=== PATIENT | male | born 1990 | race Caucasian/White ===

== ENCOUNTER 2017-03-10 16:45 | Emergency (ER) | payer SELFPAY ==
[~2017-03-10] VITALS: Ht 162.6 cm; Wt 56.7 kg
--- NOTE | 2017-03-10 17:07 | Emergency Room Report ---
History of Present Illness General Chief Complaint: General Complaint Source: Patient, EMS Present Illness HPI The patient is a 26-year-old male with a history of schizophrenia drug abuse presenting for auditory hallucinations. The patient is unsure of what is being said to him and denies suicidal ideation, self-harm, or homicidal ideation. The patient states that he has taken drugs over the past day including methamphetamines, marijuana, and acid. He denies drinking alcohol. He states he has not seen a psychiatrist within the past 6 months. He does state used to take separates which helped with the symptoms. He denies any other symptoms including N, V, F, chills, CP, SOB Allergies: Coded Allergies: No Known Allergies (Unverified , 03/10/17) Patient History Past Medical History: see triage record, psych hx Pertinent Family History: none Reviewed Nursing Documentation: PMH: Agreed, PSxH: Agreed Nursing Documentation-PMH Past Medical History: No Stated History Review of Systems All Other Systems: negative except mentioned in HPI Physical Exam Vital Signs Date Time Temp Pulse Resp B/P Pulse Ox O2 Delivery O2 Flow Rate FiO2 03/10/17 16:38 98.6 124 18 134/86 100 Room Air Sp02 EP Interpretation: reviewed, normal General Appearance: no apparent distress, alert, GCS 15, non-toxic Head: normocephalic, atraumatic Eyes: bilateral eye PERRL, bilateral eye normal inspection ENT: hearing grossly normal, normal pharynx, no angioedema, normal voice Neck: full range of motion, supple/symm/no masses Respiratory: chest non-tender, lungs clear, normal breath sounds, speaking full sentences Cardiovascular #1: regular rate, rhythm, no edema Musculoskeletal: back normal, gait/station normal, normal range of motion, non- tender Neurologic: alert, oriented x3, responsive, motor strength/tone normal, sensory intact, normal gait Psychiatric: memory normal, no suicidal/homicidal ideation, anxious Skin: normal color, no rash, warm/dry, well hydrated Lymphatic: no adenopathy Medical Decision Making PA Attestation Dr. Gar is my supervising physician. Patient management was discussed with my supervising physician Diagnostic Impression: Primary Impression: Schizophrenia Qualified Codes: F20.9 - Schizophrenia, unspecified ER Course The patient is a 26-year-old male with a history of schizophrenia and drug abuse presenting for auditory hallucinations. Differential diagnoses considered but not limited to psychosis, suicidal ideation, homicidal ideation, depression PE: No apparent distress. A&Ox3 PERRL. EOMI. Slightly anxious RRR. No MRG Lungs CTA bilat Abdomen: Normal appearance. Non distended. No ecchymosis. Normal BS. Non TTP. No McBurney point tenderness. No guarding. Skin is warm and dry, no rashes. The patient is given 10 mg of Zyprexa and is monitored in the emergency department. The patient is not presenting any harm to himself and is discharged with a referral to outpatient psychiatric care. ER precautions are given Last Vital Signs Date Time Temp Pulse Resp B/P Pulse Ox O2 Delivery O2 Flow Rate FiO2 03/10/17 16:38 98.6 124 18 134/86 100 Room Air Status: improved Disposition: HOME, SELF-CARE Condition: Improved Scripts Olanzapine* (ZYPREXA*) 10 Mg Tablet 10 MG ORAL DAILY, #30 TAB 0 Refills Prov: TORRIE SNELL 03/10/17 TORRIE SNELL March 10, 2017 17:07
[2017-03-10 17:50] VITALS: BP 136/86
[2017-03-10] MEDS ORDERED: OLANZapine 2.5mg tab ORAL ONE (18:00)
[2017-03-10] MEDS ORDERED: ZYPREXA10 MG ORAL (19:33)
[2017-03-10 19:35] VITALS: BP 132/82
[2017-03-10 19:38] VITALS: BP 132/82
== END 2017-03-10 19:38 | disposition home or self-care (01) ==
LOC: EDBD 16:45 → EMR 17:13
DX: F20.9 Schizophrenia, unspecified (principal); R44.0 Auditory hallucinations; F15.20 Other stimulant dependence, uncomplicated; F12.20 Cannabis dependence, uncomplicated; F19.20 Other psychoactive substance dependence, uncomplicated
CPT/HCPCS: 99283